=== PATIENT | male | born 1960 | race Hispanic/Latino ===

== ENCOUNTER 2024-08-10 05:56 | Day surgery (SDC) | payer OTHER, SELFPAY ==
[2024-08-10] VITALS (10 sets, daily range): BP systolic 114–134; BP diastolic 63–76; PULSE 72–90; RESP 13–18; TEMP 97.4–97.7
[~2024-08-10] VITALS: Ht 172.7 cm; Wt 79.8 kg
[2024-08-10] MEDS ORDERED: SPIR25TA6 PO (07:02)
[2024-08-10] MEDS ORDERED: INSLAN SQ (07:02)
[2024-08-10] MEDS ORDERED: URSO500T10 PO (07:02)
[2024-08-10] MEDS ORDERED: VITAMIN D PO (07:02)
[2024-08-10] MEDS ORDERED: MESALAMINE PO (07:02)
[2024-08-10] MEDS ORDERED: FURO40TA5 PO (07:02)
[2024-08-10] MEDS ORDERED: VITAMIN K PO (07:02)
[2024-08-10] MEDS ORDERED: rocuRONium bROMide 10MG/1ML 5ML VL ONE (07:04)
[2024-08-10] MEDS ORDERED: proPOFol 10 MG/ML 20ML VIAL IV ONE (07:04)
[2024-08-10] MEDS ORDERED: FENTanyl CITRate PF 50 MCG/1 ML 2ML VIAL ONE (07:04)
[2024-08-10] MEDS ORDERED: LIDOCAINE PF 100MG/5ML (2%) SYRINGE 5ML ONE (07:05)
[2024-08-10] MEDS ORDERED: phenylEPHRINE HCL 10 MG/ML 1ML VIAL IV ONE (07:29)
[2024-08-10] MEDS ORDERED: ePHEDrine SULFate 50 MG/ML AMPULE ONE (07:36)
[2024-08-10] MEDS ORDERED: GLYCOPYRROLATE 0.2 MG/ML 5 ML VIAL ONE (08:26)
[2024-08-10] MEDS ORDERED: NEOSTIGMINE METHYLSULFATE 1MG/ML IV ONE (08:27)
[2024-08-10] MEDS: DEXTROSE 50%-WATER 50 ML DISP.SYRIN IV ONE (08:44)
[2024-08-10] MEDS: ceFAZolin SODIUM 1 GM VIAL ONE (08:52)
[2024-08-10] MEDS: INDOMETHACIN 100 MG SUPP.RECT RC ONE (08:57)
[2024-08-10] MEDS: 0.9%NACL 1000ML 1,000 ML IV ONE (09:12)
[2024-08-10] MEDS ORDERED: CIPR500S4 PO (09:18)
[2024-08-10] MEDS ORDERED: IOHEXOL-350 50ML VIAL IV ONE (09:26)
--- NOTE | 2024-08-10 10:02 | HMCIMG ---
ERCP BILI/PANC DUCT REASON: ABNORMAL FINDINGS ON DIAGNOSTIC IMAGING OF LIVER & BILIARY TRACT. COMPARISON: None TECHNIQUE: ERCP was performed by referring physician. FINDINGS: Please see procedure report by referring physician. IMPRESSION: ERCP
== END 2024-08-10 09:45 | disposition home or self-care (01) ==
LOC: DAH 05:56 → ENDO 05:56
PROVIDERS: ATTEND Internal Medicine Gastroenterology
DX: K81.1 Chronic cholecystitis (principal); K83.1 Obstruction of bile duct; R93.2 Abnormal findings on diagnostic imaging of liver and biliary tract; R17 Unspecified jaundice; K83.01 Primary sclerosing cholangitis; K83.8 Other specified diseases of biliary tract; K86.9 Disease of pancreas, unspecified; R74.8 Abnormal levels of other serum enzymes; E80.7 Disorder of bilirubin metabolism, unspecified; Z79.899 Other long term (current) drug therapy; Z53.8 Procedure and treatment not carried out for other reasons
CPT/HCPCS: 43277; 82948 ×3; 74328; 43242; J3010; J0690; J7030; J7070; J3490 ×3; J2003; J2704; J2710; J2371; Q9967; C1769 ×2; A4215 ×4; A4223; A4657 ×3; A7002; A4222; A4221; A4663; A4606; C1773; 43262; 74330